=== PATIENT | female | born 1940 | race Caucasian/White ===

== ENCOUNTER 2017-09-13 07:38 | Day surgery (SDC) | payer OTHER ==
[2017-09-13] MEDS ORDERED: NS 500 ML IV 500 ML IV ONE (07:44)
[2017-09-13] MEDS ORDERED: TETRACAINE 0.5% OPHTH 1 DOSE AFFEYE ONE ×3 (08:00→10:47)
[2017-09-13] MEDS ORDERED: VIGAMOX 0.5% OPHTH 1 DOSE AFFEYE ONE ×6 (08:05→10:57)
[2017-09-13] MEDS ORDERED: PROLENSA OPHTH 1 DOSE AFFEYE ONE (08:16)
[2017-09-13] MEDS ORDERED: ALPHAGAN-P OPHTH 1 DOSE AFFEYE ONE (08:17)
[2017-09-13] MEDS ORDERED: CYCLOGYL 1% OPHTH 1 DOSE OP ONE ×3 (08:18→08:20)
[2017-09-13] MEDS ORDERED: MYDRIACIL OPHTH 1 DOSE AFFEYE ONE ×3 (08:18→08:20)
[2017-09-13] MEDS ORDERED: AK-DILATE 2.5% OPHTH 1 DOSE OP ONE ×3 (08:18→08:20)
[2017-09-13] MEDS ORDERED: DIPRIVAN VIAL ONE (09:28)
[2017-09-13] MEDS ORDERED: BETADINE OPHTH SOLN 5% EACHEYE ONE (10:43)
[2017-09-13] MEDS ORDERED: XYLOCAINE-MPF 1% IJ ONE ×2 (10:43→10:47)
[2017-09-13] MEDS ORDERED: ADRENALINE CHL INJ IJ ONE ×2 (10:43→10:47)
[2017-09-13] MEDS ORDERED: DUOVISC IO ONE ×2 (10:43→10:47)
[2017-09-13] MEDS ORDERED: BSS OPHTH (PLAIN) 500 ML with VANCOMYCIN HCL 500 MG VIAL 25 MG, ADRENALINE CHL INJ 1 MG IR ONE ×6 (10:44)
[2017-09-13 12:14] VITALS: BP 168/72
== END 2017-09-13 11:20 | disposition home or self-care (01) ==
LOC: SURG1 07:38
PROVIDERS: ATTEND Ophthalmology
PROC: 08RJ3JZ Replacement of Right Lens with Synthetic Substitute, Percutaneous Approach (ICD-10-PCS; principal; 2017-09-13 10:30)
PROC: 08DJ3ZZ Extraction of Right Lens, Percutaneous Approach (ICD-10-PCS; principal; 2017-09-13 10:30)
DX: H25.11 Age-related nuclear cataract, right eye (principal); H25.011 Cortical age-related cataract, right eye; H25.041 Posterior subcapsular polar age-related cataract, right eye
CPT/HCPCS: 99100; A4217; J0170; J3370; J3490

== ENCOUNTER 2017-09-27 08:20 | Day surgery (SDC) | payer OTHER ==
[2017-09-27] MEDS ORDERED: TETRACAINE 0.5% OPHTH 1 DOSE AFFEYE ONE ×2 (08:30→11:56)
[2017-09-27] MEDS ORDERED: VIGAMOX 0.5% OPHTH 1 DOSE AFFEYE ONE ×4 (08:35→12:14)
[2017-09-27] MEDS ORDERED: PROLENSA OPHTH 1 DOSE AFFEYE ONE (08:41)
[2017-09-27] MEDS ORDERED: ALPHAGAN-P OPHTH 1 DOSE AFFEYE ONE (08:42)
[2017-09-27] MEDS ORDERED: MYDRIACIL OPHTH 1 DOSE AFFEYE ONE ×3 (08:43→08:45)
[2017-09-27] MEDS ORDERED: AK-DILATE 2.5% OPHTH 1 DOSE OP ONE ×3 (08:43→08:45)
[2017-09-27] MEDS ORDERED: CYCLOGYL 1% OPHTH 1 DOSE OP ONE ×3 (08:43→08:45)
[2017-09-27] MEDS ORDERED: NS 500 ML IV 500 ML IV ONE (08:48)
[2017-09-27] MEDS ORDERED: DIPRIVAN VIAL ONE (10:53)
[2017-09-27] MEDS ORDERED: BETADINE OPHTH SOLN 5% EACHEYE ONE (11:55)
[2017-09-27] MEDS ORDERED: DUOVISC IO ONE ×2 (11:59→12:04)
[2017-09-27] MEDS ORDERED: XYLOCAINE-MPF 1% IJ ONE ×2 (11:59→12:04)
[2017-09-27] MEDS ORDERED: ADRENALINE CHL INJ IJ ONE ×2 (11:59→12:04)
[2017-09-27] MEDS ORDERED: BSS OPHTH (PLAIN) 500 ML with VANCOMYCIN HCL 500 MG VIAL 25 MG, ADRENALINE CHL INJ 1 MG IR ONE ×6 (12:01)
[2017-09-27 13:00] VITALS: BP 173/51
== END 2017-09-27 12:45 | disposition home or self-care (01) ==
LOC: SURG1 08:20
PROVIDERS: ATTEND Ophthalmology
PROC: 08DK3ZZ Extraction of Left Lens, Percutaneous Approach (ICD-10-PCS; principal; 2017-09-27 12:45)
PROC: 08RK3JZ Replacement of Left Lens with Synthetic Substitute, Percutaneous Approach (ICD-10-PCS; principal; 2017-09-27 12:45)
DX: H25.12 Age-related nuclear cataract, left eye (principal); H25.012 Cortical age-related cataract, left eye; H25.042 Posterior subcapsular polar age-related cataract, left eye
CPT/HCPCS: 99100; A4217; J0170; J3370; J3490